=== PATIENT | female | born 1965 | race Caucasian/White ===

== ENCOUNTER 2019-04-28 11:49 | Outpatient (CLI) | payer MEDICARE, SELFPAY ==
--- NOTE | 2019-04-28 | XR_ITS ---
WS: [id number] KNEES AP STANDING TECHNIQUE: Bilateral AP weightbearing view. CLINICAL INFORMATION: RIGHT KNEE PAIN COMPARISON: None. FINDINGS: Moderate joint space narrowing both medial joint compartments. Lateral compartments are better preser hood. Normal visualized patella on AP view. XR/[place] [id number] IMPRESSION: Moderate bilateral joint space narrowing worse in the right knee.
== END 2019-04-28 11:50 | disposition home or self-care (01) ==
LOC: RADOUTREAD 11:54
PROVIDERS: Family Provider Internal Medicine; Visit Provider Internal Medicine
DX: Z76.89 Persons encountering health services in other specified circumstances (principal)

== ENCOUNTER 2020-05-24 08:38 | Outpatient (CLI) | payer MEDICARE, SELFPAY ==
--- NOTE | 2020-05-24 08:57 | MM_ITS ---
WS: [id number] BILATERAL SCREENING DIGITAL MAMMOGRAM WITH CAD HISTORY: SCREENING COMPARISON: 07/25/2018 and 07/19/2017 Bilateral CC and MLO views submitted. Computer aided detection analyzed. Breast composition: There are scattered areas of fibroglandular density. No suspicious masses, microc alcifications or architectural distortion. Benign calcification RIGHT breast. MM/[place] [id number] IMPRESSION: BI-RADS: 2-Benign FOLLOW UP: 1 Year Follow-up
== END 2020-05-24 08:39 | disposition home or self-care (01) ==
LOC: RADSHAW 08:40
PROVIDERS: PCP Internal Medicine; Visit Provider Internal Medicine
DX: Z12.31 Encounter for screening mammogram for malignant neoplasm of breast (principal)
CPT/HCPCS: 77067

== ENCOUNTER 2021-08-16 09:37 | Outpatient (CLI) | payer MEDICARE, SELFPAY ==
--- NOTE | 2021-08-16 09:48 | MM_ITS ---
WS: [id number] BILATERAL SCREENING DIGITAL BREAST TOMOSYNTHESIS MAMMOGRAM WITH CAD HISTORY: SCREENING COMPARISON: 05/24/2020, 07/25/2018 Bilateral CC and MLO views with tomosynthesis and synthetic mammography submitted. Computer aided det ection analyzed. Breast composition: There are scattered areas of fibroglandular density. No suspicious masses, microc alcifications or architectural distortion. Vascular calcifications retroareolar LEFT breast. MM/[place] [id number] IMPRESSION: BI-RADS: 2-Benign FOLLOW UP: 1 Year Follow-up
== END 2021-08-16 09:38 | disposition home or self-care (01) ==
PROVIDERS: PCP Internal Medicine; Visit Provider Internal Medicine
DX: Z12.31 Encounter for screening mammogram for malignant neoplasm of breast (principal)
CPT/HCPCS: 77063; 77067

== ENCOUNTER → 2021-10-05 11:41 | Outpatient (BNVA) | payer MEDICARE, SELFPAY | PROVIDERS: PCP Internal Medicine; Visit Provider Nurse Practitioner Family | DX: U07.1 COVID-19 (principal); J40 Bronchitis, not specified as acute or chronic; J44.9 Chronic obstructive pulmonary disease, unspecified; R09.02 Hypoxemia | CPT/HCPCS: 80053 ==

== ENCOUNTER → 2021-11-28 09:02 | Outpatient (BNVA) | payer MEDICARE, SELFPAY | PROVIDERS: PCP Internal Medicine; Referring Provider Internal Medicine; Visit Provider Student in an Organized Health Care Education/Training Program | DX: M17.11 Unilateral primary osteoarthritis, right knee (principal); M25.561 Pain in right knee | CPT/HCPCS: 20610; 73560; 73565; 99204; J3301 ==

== ENCOUNTER 2022-03-15 10:42 | Emergency (ER) | payer OTHER, SELFPAY ==
[2022-03-15] VITALS (9 sets, daily range): BP systolic 117–146; BP diastolic 81–93; PULSE 62–70; RESP 16–18; TEMP 36.9; O2SAT 86–97; BMI 33.3
--- NOTE | 2022-03-15 11:25 | XRR_ITS ---
PROCEDURE INFORMATION: Exam: XR Chest Exam date and time: 03/15/2022 12:03 PM Age: 56 years old Clinical indication: Cough and dyspnea; Additional info: Dyspnea/cough TECHNIQUE: Imaging protocol: Radiologic exam of the chest. Views: 1 view. COMPARISON: CR XR chest 1V [id number] 09/26/2017 9:17 AM FINDINGS: Lungs: There ill-defined ground-glass infiltrates within the mid to lower lung zones more pronounced on the right that have developed in presumed infectious in nature. Possibly of viral pneumonitis including COVID-19 cannot be excluded. Upper lung zones are clear. Pleural spaces: Unremarkable. No pleural effusion. No pneumothorax. Heart/Mediastinum: Cardiac silhouette is borderline enlarged. Bones/joints: Unremarkable for age. XR/XR chest 1V portable [id number] IMPRESSION: Interval development of bilateral ground-glass infiltrates as discussed above.
--- NOTE | 2022-03-15 11:26 | ECG_ITS ---
[facility] Test Date: 2022-03-15 Pat Name: Magda Jackson Department: Room: Gender: Female Information Resource Consultant: : 1965 Requested By: Ritesh Candelario Order Number: [id number] Joey MD: Tracey Lay M.D. Measurements Intervals [place] Rate: 64 P: 63 DE: 173 QRS: 77 QRSD: 96 T: 79 QT: 439 QTc: 454 Interpretive Statements SINUS RHYTHM NONSPECIFIC T-WAVE ABNORMALITY No previous ECG available for comparison Electronically Signed On 03-15-2022 18:12:50 SENIOR SALES MANAGER by Tracey Lay M.D. [id number]
[2022-03-15 11:41] LABS: Basophils % 0.1 %; Eosinophils % 0.1 %; Hematocrit 35.1 % (37.0-47.0); Hemoglobin 11.5 g/dL (11.5-15.3); Lymphocytes # 1.4 10^3/uL (0.8-4.8); Lymphocytes % 19.9 %; Mean Corpuscular HGB Conc 32.8 g/dL (30.0-36.0); Mean Corpuscular Hemoglobin 28.7 pg (28.0-34.0); Mean Corpuscular Volume 87.5 fl (81-99); Mean Platelet Volume 10.4 fL (7.4-10.4); Monocytes # 0.4 10^3/uL (0.2-0.9); Monocytes % 5.4 %; Neutrophils # 5.29 10^3/uL (1.8-7.7); Neutrophils % 73.1 %; Nucleated Red Blood Cells % 0 %; Platelet Count 162 10^3/cmm (130-400); Red Blood Count 4.01 10^6/uL (4.1-5.3); Red Cell Distribution Width 14.6 % (12.1-15.1); White Blood Count 7.2 10^3/uL (4.0-10.0)
--- NOTE | 2022-03-15 12:05 | ED_ITS ---
HPI - General Adult General: Chief complaint: General Medical Stated complaint: sob Time Seen by Provider: 03/15/22 11:24 Source: patient Mode of arrival: ambulatory History of Present Illness: 56-year-old female who presents to the emergency room with complaint of cough congestion shortness of breath for the last week. States she feels like she has the flu. She has been hypoxic she previously had COVID and was discharged home with oxygen on room air today she presented at 86%. With 3 L she is up to 97%. She denies any chest pain no vomiting but she has had some episodes of diarrhea. Patient is a smoker she is on Spiriva and albuterol. She used albuterol treatments morning with moderate relief of symptoms Onset (ago): week(s) (1) Severity: mild Relieving factors: other (Oxygen) Exacerbating factors: none Associated symptoms: Reports cough, decreased appetite, dyspnea, fevers/chills, headache(s), malaise, nausea, short of breath and weakness; Deny chest pain, confusion, diaphoresis, rash, palpitations, seizures, syncope or vomiting Treatments prior to arrival: other (Albuterol) Review of Systems Const: Reports: malaise; Denies: diaphoresis ENMT: Denies: throat pain, ear or mastoid pain, nasal discharge or nasal congestion Card: Denies: chest pain, palpitations or syncope Resp: Reports: dyspnea GI: Reports: nausea; Denies: vomiting : Denies: flank pain, difficulty voiding, dysuria, urinary frequency or u rinary urgency Skin/Breast: Denies: rash Neuro: Reports: headache(s); Denies: confusion PFSH ED PFSH: Medical History (Updated 03/15/22 @ 14:37 by Ritesh Stewart DO) COPD (chronic obstructive pulmonary disease) Right knee DJD Surgical History (Updated 03/15/22 @ 12:11 by Ritesh Stewart DO) History of lumpectomy of left breast History of nasal surgery History of right knee surgery Social History Smoking and tobacco status: current every day smoker (1 pack a day for over 20 years ) Physical Exam Const: GENERAL APPEARANCE: cooperative and comfortable ORIENTATION/CONSCIOUSNESS: Yes awake, Yes oriented to person, Yes oriented to place and Yes oriented to time HENMT: COMMON NORMALS: normocephalic, atraumatic and hearing grossly normal bilaterally HEAD & SCALP: normocephalic and atraumatic Resp: AUSCULTATION: rhonchi and wheezes Cardio: COMMON NORMALS: regular rate, regular rhythm and No murmurs present (Cardio) RATE: regular rate RHYTHM: regular rhythm GI: COMMON NORMALS: Soft to palpation and No hepatosplenomegaly present AUSCULTATION: Yes normoactive bowel sounds PALPATION: Yes Soft to palpation, No Tenderness to palpation present (GI), No Guarding due to palpation present (GI) and Yes No hepatosplenomegaly present Extremity: COMMON NORMALS: normal to inspection, capillary refill normal, no clubbing, cyanosis or edema, no calf tenderness and no pedal edema Neuro: SENSORIUM/ORIENTATION: Yes oriented to person, Yes oriented to place and Yes oriented to time Skin: COMMON NORMALS: no rashes or lesions noted GENERAL SKIN EXAM: no rashes or lesions noted Course Vital Signs: Vital signs: Vital Signs Temperature 98.4 F 03/15/22 10:52 Pulse Rate 64 03/15/22 14:19 Respiratory Rate 16 03/15/22 14:19 Blood Pressure 145/82 03/15/22 14:19 Pulse Oximetry 93 03/15/22 14:19 Oxygen Delivery Me thod 03/15/22 14:19 Oxygen Flow Rate 1 03/15/22 14:19 [facility] - General Adult Medical Decision Making Exacerbation of COPD with influenza. Patient has oxygen at home she will need to wear it at 2 to 3 L/min which is what she has previously prescribed out. She is outside the window of opportunity to start Tamiflu. Steroid taper and aggressive use of albuterol ipratropium nebulizers for pulmonary toilet recheck with primary care for improving Medical Records I reviewed the patient's medical records. Lab Data I reviewed the patient's lab results. 03/15/22 11:28 03/15/22 11:28 Radiology Impressions Chest X-Ray 03/15/22 11:25 IMPRESSION: Interval development of bilateral ground-glass infiltrates as discussed above. Laboratory Results WBC 7.2 10^3/uL (4.0-10.0) 03/15/22 11:28 RBC 4.01 10^6/uL (4.1-5.3) L 03/15/22 11:28 Hgb 11.5 g/dL (11.5-15.3) 03/15/22 11:28 Hct 35.1 % (37.0-47.0) L 03/15/22 11:28 MCV 87.5 fl (81-99) 03/15/22 11:28 MCH 28.7 pg (28.0-34.0) 03/15/22 11:28 MCHC 32.8 g/dL (30.0-36.0) 03/15/22 11:28 RDW 14.6 % (12.1-15.1) 03/15/22 11:28 Plt Count 162 10^3/cmm (130-400) 03/15/22 11:28 MPV 10.4 fL (7.4-10.4) 03/15/22 11:28 Neut % (Auto) 73.1 % 03/15/22 11:28 Lymph % (Auto) 19.9 % 03/15/22 11:28 [place] % (Auto) 5.4 % 03/15/22 11:28 Eos % (Auto) 0.1 % 03/15/22 11:28 Baso % (Auto) 0.1 % 03/15/22 11:28 Neut # (Auto) 5.29 10^3/uL (1.8-7.7) 03/15/22 11:28 Lymph # (Auto) 1.4 10^3/uL (0.8-4.8) 03/15/22 11:28 [place] # (Auto) 0.4 10^3/uL (0.2-0.9) 03/15/22 11:28 Eos # (Auto) 0.0 10^3/uL (0.0-0.8) 03/15/22 11:28 Baso # (Auto) 0.0 10^3/uL (0.0-0.1) 03/15/22 11:28 Nucleated RBC % (auto) 0 % 03/15/22 11:28 Nucleated RBCs # 0.0 /100WBC 03/15/22 11:28 Sodium 132 mmol/L (136-145) L 03/15/22 11:28 Potassium 5.4 mmol/L (3.5-5.1) H 03/15/22 11:28 Chloride 99 mmol/L (98-107) 03/15/22 11:28 Carbon Dioxide 24 mmol/L (22-29) 03/15/22 11:28 Anion Gap 14.4 (5-19) 03/15/22 11:28 BUN 7 mg/dL (6-20) 03/15/22 11:28 Creatinine 1.1 mg/dL (0.5-0.9) H 03/15/22 11:28 GFR Calculation 51.0 mL/min (90-130) L 03/15/22 11:28 Glucose 101 mg/dL (65-115) 03/15/22 11:28 Calculated Osmolality 272 mOsm/kg (285-295) L 03/15/22 11:28 Calcium 8.3 mg/dL (8.5-10.5) L 03/15/22 11:28 Total Bilirubin 0.3 mg/dL (0.15-1.2) 03/15/22 11:28 AST 27 U/L (0-32) 03/15/22 11:28 ALT 21 U/L (0-33) 03/15/22 11:28 Alkaline Phosphatase 58 U/L (35-105) 03/15/22 11:28 Total Protein 6.7 g/dL (6.6-8.7) 03/15/22 11:28 Albumin 4.0 g/dL (3.5-5.2) 03/15/22 11:28 Globulin 2.7 g/dL (1.3-4.6) 03/15/22 11:28 Nasal Influ A H1 2009 PCR Detected (NOT DETECT) A 03/15/22 14:14 Coronavirus 229E (PCR) Not detected (NOT DETECT) 03/15/22 12:16 Influenza A (H1) PCR Not detected (NOT DETECT) 03/15/22 14:14 Influenza A (H3) PCR Not detected (NOT DETECT) 03/15/22 14:14 Influenza Type A (PCR) Detected (NOT DETECT) A 03/15/22 14:14 Influenza Type B (PCR) Not detected (NOT DETECT) 03/15/22 14:14 SARS-CoV-2 (PCR) Not detected (NOT DETECT) 03/15/22 12:16 Discharge Plan Discharge Patient Disposition: Home Clinical Impression: Influenza A, Acute exacerbation of chronic obstructive pulmonary disease Condition: Stable Prescriptions: New prednisone 20 mg tablet 20 mg PO TID Qty: 15 0RF Rx Instructions: 1 p.o. 3 times daily x3 days, 1 p.o. twice daily x2 days, 1 p.o. daily x2 days ipratropium-albuterol 0.5 mg-3 mg(2.5 mg base)/3 mL solution for nebulization 3 ml inhalation Q4H PRN (Reason: shortness of breath or wheezing) Qty: 180 0RF Rx Instructions: until breathing returns to target peak flow/parameters No Action mometasone [Nasonex] 50 mcg/actuation spray,non-aerosol 2 spray intranasal DAILY Rx Instructions: administer into each nostril cyclobenzaprine 10 mg tablet 10 mg PO TID PRN (Reason: Muscle Pain) trazodone 100 mg tablet 100 mg PO BEDTIME naproxen 375 mg tablet 375 mg PO BID PRN (Reason: Pain) Dexilant 60 mg capsule,biphase delayed releas 60 mg PO DAILY montelukast 10 mg tablet 10 mg PO DAILY loratadine [Claritin] 10 mg tablet 10 mg PO DAILY citalopram [Celexa] 40 mg tablet 40 mg PO DAILY hydrocodone-acetaminophen 10-325 mg tablet 1 tab PO Q8H PRN (Reason: Pain) atorvastatin [Lipitor] 20 mg tablet 20 mg PO DAILY magnesium 200 mg tablet 400 mg PO BID albuterol sulfate [ProAir HFA] 90 mcg/actuation HFA aerosol inhaler 2 puff inhalation QID PRN (Reason: shortness of breath or wheezing) Qty: 8.5 6RF Trelegy Ellipta 200-62.5-25 mcg blister with device 1 inh inhalation Q24H Qty: 60 6RF (DME) compressor, for nebulizer Device See Rx Instructions .Route Qty: 1 0RF Rx Instructions: 1 NEBULIZER AND ALL REQUIRED EGUIPMENT As directed albuterol sulfate 2.5 mg /3 mL (0.083 %) solution for nebulization 2.5 mg inhalation Q4H PRN (Reason: shortness of breath or wheezing) Qty: 180 6RF promethazine-DM 6.25-15 mg/5 mL syrup 5 - 10 ml PO Q6H PRN (Reason: cough) Qty: 200 1RF (DME) nebulizer machine and supplies See Rx Instructions .Route .MEDSUPPLY Qty: 1 0RF Rx Instructions: with albuterol every 4 hours prn dyspnea and wheezing (DME) Oxygen @ 2 L per n/c prn See Rx Instructions .Route .MEDSUPPLY Qty: 1 0RF Rx Instructions: needs conservative device with portable and concentrator (DME) INSPECTOR SET UP AND LAY OUT BRACE See Rx Instructions .Route .MEDSUPPLY Qty: 1 0RF Rx Instructions: As directed alprazolam 0.5 mg tablet 0.5 mg PO TID PRN (Reason: Anxiety) bupropion HCl 150 mg tablet extended release 24 hr 150 mg PO DAILY pregabalin 150 mg capsule 150 mg PO TID Discharge Orders: Discharge ED (Routine); Ordered 03/15/22 Ordered By: Ritesh Stewart Referrals: Conor Centeno DO [Primary Care Provider] - Discharge Diet: Usual diet Discharge Activity: Increase activity as tolerated Patient Instructions: Opioid Safety, Pain Management Activity Restrictions/Additional Instructions: You were seen today for cough and shortness of breath. He tested positive for influenza. Your course of influenza is further complicated by your COPD. He should wear your oxygen at 2-3 L/min continuously. Start the prednisone taper tomorrow. Additionally use the nebulizers every 4 hours while awake as needed. Coding Level of Care Code ED Business Analysis Professional for Melina Fwd Exam Detailed
[2022-03-15 12:09] LABS: Alanine Aminotransferase 21 U/L (0-33); Alkaline Phosphatase 58 U/L (35-105); Anion Gap 14.4 (5-19); Aspartate Amino Transferase 27 U/L (0-32); Blood Urea Nitrogen 7 mg/dL (6-20); Calcium 8.3 mg/dL (8.5-10.5); Carbon Dioxide 24 mmol/L (22-29); Chloride 99 mmol/L (98-107); Globulin 2.7 g/dL (1.3-4.6); Glucose 101 mg/dL (65-115); Osmolality Calculated 272 mOsm/kg (285-295); Potassium 5.4 mmol/L (3.5-5.1); Sodium 132 mmol/L (136-145); Total Bilirubin 0.3 mg/dL (0.15-1.2); Total Protein 6.7 g/dL (6.6-8.7)
[2022-03-15] MEDS: ipratropium-albuterol 3 mL Neb INHALATION (12:33)
[2022-03-15 14:11] LABS: Adenovirus Not Detected (NOT DETECT); Chlamydia Pneumoniae Not Detected (NOT DETECT); Coronavirus 229E,HKU1,NL63,OC4 Not Detected (NOT DETECT); Human Metapneumovirus Not Detected (NOT DETECT); Human Rhinovirus/Enterovirus Not Detected (NOT DETECT); Influenza A Detected (NOT DETECT); Influenza A H1 Not Detected (NOT DETECT); Influenza A H1-2009 Detected (NOT DETECT); Influenza A H3 Not Detected (NOT DETECT); Influenza B Not Detected (NOT DETECT); Mycoplasma Pneumoniae Not Detected (NOT DETECT); Parainfluenza Virus Type 1 Not Detected (NOT DETECT); Parainfluenza Virus Type 2 Not Detected (NOT DETECT); Parainfluenza Virus Type 3 Not Detected (NOT DETECT); Parainfluenza Virus Type 4 Not Detected (NOT DETECT); Respiratory Syncytial Virus A Not Detected (NOT DETECT); Respiratory Syncytial Virus B Not Detected (NOT DETECT); SARS-COV-2 Not Detected (NOT DETECT)
[2022-03-15 14:14] LABS: Influenza A Detected (NOT DETECT); Influenza A H1 Not Detected (NOT DETECT); Influenza A H1-2009 Detected (NOT DETECT); Influenza A H3 Not Detected (NOT DETECT); Influenza B Not Detected (NOT DETECT); Results from GEN
--- NOTE | 2022-03-15 16:24 | PC.NURSE ---
Pt and spouse stopped RN AP numerous times requesting to be discharged. Pt verbalized the need to go, seconded by spouse, to take my meds , and pt supported spouses verbalized discontentment with having to wait. Pt requested to be discharged. Pt and spouse verbalized negative feelings about the timely process to discharge and can't wait around for oxygen to arrive. Pt was aware of wait for oxygen. Requested to be discharged and verbalized we have to drive to [place] . Pt and spouse were worried about time to get meds.
== END 2022-03-15 15:46 | disposition home or self-care (01) ==
PROVIDERS: Emergency Provider Family Medicine; PCP Internal Medicine
DX: J44.1 Chronic obstructive pulmonary disease with (acute) exacerbation (principal); J10.1 Influenza due to other identified influenza virus with other respiratory manifestations; Z20.822 Contact with and (suspected) exposure to COVID-19; F17.210 Nicotine dependence, cigarettes, uncomplicated
CPT/HCPCS: 36415; 71045; 80053; 85025; 87040; 87631; 87635; 93005; 94640; 96374; 99285; J2930

== ENCOUNTER 2022-04-13 14:49 | Outpatient (CLI) | payer OTHER, SELFPAY | END 2022-04-13 14:50 | disposition home or self-care (01) | LOC: SPT 14:49 | PROVIDERS: PCP Internal Medicine; Visit Provider Student in an Organized Health Care Education/Training Program | DX: Z46.89 Encounter for fitting and adjustment of other specified devices (principal); M17.11 Unilateral primary osteoarthritis, right knee | CPT/HCPCS: 97760; L1851 ==

== ENCOUNTER 2022-08-30 11:02 | Outpatient (CLI) | payer MEDICARE, SELFPAY ==
--- NOTE | 2022-08-30 11:12 | MM_ITS ---
WS: [id number] BILATERAL SCREENING DIGITAL TOMOSYNTHESIS MAMMOGRAM WITH CAD HISTORY: SCREENING COMPARISON: 08/16/2021, 05/24/2020 Bilateral CC and MLO views with tomosynthesis and synthetic mammography submitted. Computer aided det ection analyzed. Breast composition: There are scattered areas of fibroglandular density. No suspicious masses, microc alcifications or architectural distortion. MM/[place] [id number] IMPRESSION: BI-RADS: 1-Negative FOLLOW UP: 1 Year Follow-up
== END 2022-08-30 11:03 | disposition home or self-care (01) ==
PROVIDERS: PCP Internal Medicine; Visit Provider Internal Medicine
DX: Z12.31 Encounter for screening mammogram for malignant neoplasm of breast (principal)
CPT/HCPCS: 77063; 77067

== ENCOUNTER → 2023-01-02 09:29 | Outpatient (BNVA) | payer MEDICARE, SELFPAY | PROVIDERS: PCP Internal Medicine; Visit Provider Physician Assistant | DX: M17.11 Unilateral primary osteoarthritis, right knee (principal) | CPT/HCPCS: 20610; 99213; J3301 ==

== ENCOUNTER → 2023-05-15 11:06 | Outpatient (BNVA) | payer MEDICARE, SELFPAY | PROVIDERS: PCP Internal Medicine; Visit Provider Student in an Organized Health Care Education/Training Program | DX: M17.11 Unilateral primary osteoarthritis, right knee (principal) | CPT/HCPCS: 99213 ==

== ENCOUNTER → 2023-06-19 08:07 | Outpatient (BNVA) | payer MEDICARE, SELFPAY | PROVIDERS: PCP Internal Medicine; Visit Provider Physician Assistant | DX: M17.11 Unilateral primary osteoarthritis, right knee (principal) | CPT/HCPCS: 20610; 99213; J7318 ==

== ENCOUNTER 2023-11-06 09:30 | Outpatient (CLI) | payer MEDICARE, SELFPAY ==
--- NOTE | 2023-11-06 09:58 | MM_ITS ---
WS: [id number] BILATERAL 3D TOMOSYNTHESIS DIGITAL SCREENING MAMMOGRAPHY WITH CAD CLINICAL INFORMATION: SCREENING HISTORY: Screening mammogram. No current complaints. COMPARISON: 2022 TECHNIQUE: Bilateral CC and MLO views. FINDINGS: The breasts are composed of heterogeneous fibroglandular density tissue, which can limit the detectio n of small underlying mass lesions. No suspicious mass, asymmetry, calcifications, or architectural d istortion. No evidence of malignancy. Few incidental punctate calcifications. MM/[place] [id number] IMPRESSION: BI-RADS: 2-Benign FOLLOW UP: 1 Year Follow-up Recommend return to annual screening mammography.
== END 2023-11-06 09:55 | disposition home or self-care (01) ==
PROVIDERS: PCP Internal Medicine; Visit Provider Internal Medicine
DX: Z12.31 Encounter for screening mammogram for malignant neoplasm of breast (principal); R92.333 Mammographic heterogeneous density, bilateral breasts; R92.1 Mammographic calcification found on diagnostic imaging of breast
CPT/HCPCS: 77063; 77067

== ENCOUNTER → 2023-12-25 08:15 | Outpatient (BNVA) | payer MEDICARE, SELFPAY | PROVIDERS: PCP Internal Medicine; Visit Provider Physician Assistant | DX: M17.11 Unilateral primary osteoarthritis, right knee (principal) | CPT/HCPCS: 20610; 99213; J7318 ==

== ENCOUNTER → 2024-03-20 10:01 | Outpatient (BNVA) | payer MEDICARE, SELFPAY | PROVIDERS: PCP Internal Medicine; Referring Provider Internal Medicine; Visit Provider Specialist | DX: R20.0 Anesthesia of skin (principal); R20.2 Paresthesia of skin | CPT/HCPCS: 95911 ==

== ENCOUNTER → 2024-04-29 11:13 | Outpatient (BNVA) | payer MEDICARE, SELFPAY | PROVIDERS: PCP Internal Medicine; Visit Provider Nurse Practitioner Family | DX: J40 Bronchitis, not specified as acute or chronic (principal) | CPT/HCPCS: 71046 ==

== ENCOUNTER → 2024-05-01 12:05 | Outpatient (BNVA) | payer MEDICARE, SELFPAY | PROVIDERS: PCP Internal Medicine; Visit Provider Nurse Practitioner Family | DX: J98.11 Atelectasis (principal) | CPT/HCPCS: 71046 ==

== ENCOUNTER → 2024-06-25 08:52 | Outpatient (BNVA) | payer MEDICARE, SELFPAY | PROVIDERS: PCP Family Medicine; Visit Provider Physician Assistant | DX: M17.11 Unilateral primary osteoarthritis, right knee (principal) | CPT/HCPCS: 20610; 99213; J7318 ==

== ENCOUNTER → 2024-09-10 10:11 | Outpatient (BNVA) | payer MEDICARE, SELFPAY | PROVIDERS: PCP Family Medicine; Visit Provider Physician Assistant | DX: M17.11 Unilateral primary osteoarthritis, right knee (principal); Z87.891 Personal history of nicotine dependence | CPT/HCPCS: 73560; 73565; 99214 ==

== ENCOUNTER 2024-09-23 10:40 | Outpatient (CLI) | payer OTHER, SELFPAY ==
--- NOTE | 2024-09-23 10:30 | CT_ITS ---
WS: [id number] CT RIGHT knee, noncontrast HISTORY: RIGHT TOTAL KNEE ARTHROPLASTY TECHNIQUE: Protocol for [facility] total knee replacement has been obtained. This includes axial imaging through the RIGHT hip, RIGHT knee and RIGHT ankle. DLP: 971.79 mGy.cm COMPARISON: Radiograph 09/10/2024 Hips: Degenerative air in the SI joints and mild sacroiliitis. No bone destruction. No significant degenerative changes at the hip joints. Enthesopathy at the RIGHT greater trochanter. No muscle atrophy. RIGHT knee: Mild to moderate medial compartment joint space narrowing with subchondral cystic changes and hypertrophic bone. Mild narrowing of the lateral compartment and patellofemoral compartments. Very slight lateral subluxation of the patella. Small suprapatellar joint effusion. Moderate-sized Miller's cyst. RIGHT ankle: Negative. CT/CT knee RT [facility] [id number] IMPRESSION: CT imaging provided for [facility] robotic total knee replacement.
== END 2024-09-23 10:41 | disposition home or self-care (01) ==
LOC: RAD 10:50
PROVIDERS: PCP Family Medicine; Visit Provider Physician Assistant
DX: M17.11 Unilateral primary osteoarthritis, right knee (principal)
CPT/HCPCS: 73700; 80053; 81003; 85025

== ENCOUNTER 2024-09-29 12:23 | Observation (INO) | payer MEDICARE, SELFPAY ==
[2024-09-29] VITALS (20 sets, daily range): BP systolic 111–157; BP diastolic 59–88; PULSE 60–96; RESP 13–22; TEMP 36.4–36.9; O2SAT 92–100; BMI 32.5
--- NOTE | 2024-09-29 07:20 | P.HPUD_ITS ---
Surgery/Procedure H&P Update DATE OF PROCEDURE: September 29, 2024 DATE H&P PERFORMED: 09/10/24 H&P UPDATE INFORMATION: I have reviewed H&P completed within last 30 days, I have examined patient prior to procedure and No changes to prior documentation CHANGES TO PREVIOUS DOCUMENTATION: Patient is cleared the preoperative clearance process, she is over 90 days out from her last injection and ready to proceed with a right total knee arthroplas ty?Gallito robotic assisted. Patient understands enzymes procedure the risk benefits complication alternatives with surgery and through shared decision- making patient elects proceed with surgical intervention. All questions been answered at this time. PREOP DIAGNOSIS: Right knee DJD PRIMARY INDICATION FOR PROCEDURE: Right knee DJD PLANNED PROCEDURE: Operation Date: 09/29/24 09:35 Proposed Procedures p RIGHT Gallito Robot Total Knee Arthroplasty(Right) - Javier Rivera DO
[2024-09-29] MEDS: acetaminophen 1,000 MG/100 ML PIGGYBACK 400 MG IV ×3 (07:50→23:54)
[2024-09-29 08:15] LABS: Hematocrit 36.3 % (36-47); Hemoglobin 11.70 g/dL (11.27-16.99); Mean Corpuscular HGB Conc 32.2 g/dL (30-55); Mean Corpuscular Hemoglobin 25.8 pg (27-33); Mean Corpuscular Volume 80.0 fl (85-98); Nucleated Red Blood Cells % 0 %; Platelet Count 209 10^3/cmm (157-399); Red Blood Count 4.54 10^6/uL (3.85-5.65); White Blood Count 6.45 10^3/uL (3.29-11.43)
[2024-09-29 08:30] LABS: Blood Urea Nitrogen 20 mg/dL (8-23); Calcium 9.2 mg/dL (8.5-10.5); Carbon Dioxide 23 mmol/L (22-29); Chloride 105 mmol/L (98-107); Glucose 91 mg/dL (65-115); Osmolality Calculated 296 mOsm/kg (285-295); Sodium 142 mmol/L (136-145)
[2024-09-29 08:32] LABS: Anion Gap 18.4 (5-19); Creatinine Clr Calc Pharmacy 57.7770; Potassium 4.4 mmol/L (3.5-5.1)
--- NOTE | 2024-09-29 09:39 | ANES.PREANE2 ---
Pre-Anesthetic Assessment Height/Weight: Height 1.63 m Weight 86.183 kg Temp Pulse Resp BP Pulse Ox O2 Del Method 97.6 F 74 18 114/82 95 Room Air 09/29/24 07:20 09/29/24 07:20 09/29/24 07:20 09/29/24 07:20 09/29/24 07:20 09/29/24 07:31 Preop Diagnosis: Right knee DJD Operation Date: 09/29/24 09:35 Proposed Procedures p RIGHT Gallito Robot Total Knee Arthroplasty(Right) - Javier Rivera DO Familial anesthetic complications: none Was Beta Sarah taken within 24 hours: N/A Was Clonidine taken within 24 hours: N/A Last intake: Intake Last Liquid Date 09/28/24 Last Liquid Time 22:00 Last Solid Date 09/28/24 Last Solid Time 21:00 Social Tobacco and No alcohol 15 pack years Quit smoking may 2024. Exam alert, oriented x 3, clear to auscultation bilaterally and regular rate & rhythm Airway Cervical ROM: within normal limits Mallampati: Class III Dentition: chipped Comments: Comments: missing front left incisor Pulmonary Chronic Obstructive Pulmonary Disease Hospitalized in May. with right pleural effusion, 500ml drained, pt. states breathing well since CV/HEM None reported >4mets Chronic Renal Insufficiency Hepatic None reported Metabolic Hyperlipidemia Musc/skel Osteoarthritis/DJD Neuropsych None reported Anesthetic Plan ASA status: 3 Anesthesia: Eval. for regional block, MAC and Regional (specify below) Other: SAB, ACB Risk of > 500 ml blood loss (7ml/kg in children): No Medications/Allergies Home Medications ?Medication ?Instructions ?Recorded ?Confirmed ?Last Taken ?Type atorvastatin 20 mg tablet (Lipitor) 20 mg PO DAILY 01/03/21 09/29/24 09/24/24 History cyclobenzaprine 10 mg tablet 10 mg PO TID PRN Muscle Pain 01/03/21 09/25/24 Unknown History hydrocodone 10 mg-acetaminophen 1 tab PO Q8H PRN Pain 01/03/21 09/29/24 09/29/24 History 325 mg tablet loratadine 10 mg tablet (Claritin) 10 mg PO DAILY 01/03/21 09/29/24 09/28/24 History magnesium 200 mg tablet 400 mg PO DAILY 01/03/21 09/29/24 09/28/24 History montelukast 10 mg tablet 10 mg PO DAILY 01/03/21 09/29/24 09/28/24 History naproxen 375 mg tablet 375 mg PO BID PRN Pain 01/03/21 09/25/24 Unknown History trazodone 100 mg tablet 100 mg PO BEDTIME 01/03/21 09/29/24 09/24/24 History albuterol sulfate 2.5 mg/3 mL 2.5 mg (3 mL) inhalation Q4H PRN 10/05/21 09/29/24 Unknown Rx (0.083 %) solution for nebulization shortness of breath or wheezing #180 mL compressor, for nebulizer #1 ea 10/05/21 09/23/24 Unknown Rx nebulizer machine and supplies #1 ea 10/05/21 09/23/24 Unknown Rx CHARGE ATTENDANT BRACE #1 ea 01/09/22 09/23/24 Unknown Rx alprazolam 0.5 mg tablet 0.5 mg PO TID PRN Anxiety 03/15/22 09/29/24 Unknown History bupropion HCl 150 mg 24 hr tablet, 150 mg PO DAILY 03/15/22 09/29/24 09/25/24 History extended release pregabalin 150 mg capsule See Rx Instructions .Route .COMPLEX 03/15/22 09/29/24 09/29/24 History albuterol sulfate 90 mcg/actuation 2 puff inhalation QID PRN 05/25/22 09/29/24 Unknown Rx aerosol inhaler (ProAir HFA) shortness of breath or wheezing #8.5 grams fluticasone fur. 200 mcg-umeclid 1 inh inhalation Q24H #60 ea 05/25/22 09/29/24 09/29/24 Rx 62.5 mcg-vilant 25 mcg inhalat.powder (Trelegy Ellipta) ibuprofen 200 mg capsule 200 mg PO Q6H PRN Pain 06/19/23 09/29/24 Unknown History biotin 10,000 mcg chewable tablet 10,000 mcg PO DAILY 09/23/24 09/29/24 09/25/24 History (Hair, Skin and Nails (biotin)) calcium carbonate (Calcium 600) 600 mg PO DAILY 09/23/24 09/25/24 09/25/24 History omeprazole magnesium 20 mg 20 mg PO DAILY 09/23/24 09/29/24 09/28/24 History tablet,delayed release (Prilosec OTC) Allergies Allergy/AdvReac Type Severity Reaction Status Date / Time azithromycin Allergy Severe ADR-Vomitin Verified 09/29/24 07:26 g PFSH Anesthesia Medical History Right knee DJD COPD (chronic obstructive pulmonary disease) Surgical History History of lumpectomy of left breast History of nasal surgery History of right knee surgery Social History Smoking and tobacco/nicotine status: former use of tobacco/nicotine Data Anesthesia 09/29/24 07:51 09/29/24 07:40 Short CBC 09/29/24 Range/Units 07:51 WBC 6.45 (3.29-11.43) 10^3/uL Hgb 11.70 (11.27-16.99) g/dL Hct 36.3 (36-47) % MCV 80.0 L (85-98) fl Plt Count 209 (157-399) 10^3/cmm Neut % (Auto) 53.0 % Neut # (Auto) 3.42 (1.8-7.7) 10^3/uL BMP 09/29/24 07:40 Sodium 142 Potassium 4.4 Chloride 105 Carbon Dioxide 23 BUN 20 Creatinine 1.1 H Glucose 91 Calcium 9.2 Blood Bank 09/29/24 07:40 Blood Type A Positive Rho(D) Type Rh positive Antibody Screen Negative
[2024-09-29] MEDS: ceFAZolin 2,000 mg SDV 2000 MG IVP (10:17)
[2024-09-29] MEDS: tranexamic acid 1,000 mg/10mL SDV 1000 MG IV (10:20)
--- NOTE | 2024-09-29 10:23 | ANES.PROC ---
Anesthesia Procedures Procedure/Date: 09/29/24 Nerve Block ^: Nerve Block 1: Main Anesthesia: other Time Out Performed: Yes Consent: requested by attending/covering physician and from patient Nerve block location: adductor canal Anesthesia monitors applied: pulse oximetry, EKG, BP cuff and oxygen Nerve block position: supine Anesthetic Used: ropivicaine 0.5% Amount of anesthesia used (mL): 15 Ultrasound used to: recognize landmarks Nerve Stimulator Used?: Yes Interscalene/Femoral BLK: other needle (pjunk 4inch) Injection: neg aspiration of heme Patient Tolerated Procedure: well Complications: none
[2024-09-29] MEDS: ROPivacaine 0.2% Premix 100 mL 200 MG INTRA-ARTI (11:05)
[2024-09-29] MEDS: tranexamic acid 1,000 mg/10mL SDV 1000 MG XX (11:05)
--- NOTE | 2024-09-29 11:53 | W.PM.BPON ---
Date of Procedure: 09/29/2024 Surgeon: Javier Rivera DO Adobe Block Maker(s): Endy Rivera PA-C Procedure(s) performed: Right total knee arthroplasty?Gallito robotic assisted Findings of the procedure(s): Underwent procedure as planned without issues or complications. Estimated blood loss: 25 mL Specimen(s) removed: Tibia femur and patellar bone cuts removed Post-operative diagnosis: Right knee DJD
--- NOTE | 2024-09-29 11:56 | PM.OP ---
Operative Report Date of procedure: September 29, 2024 Surgeon: Javier Rivera DO Procedure: Preoperative diagnosis: Right knee degenerative joint disease Post-op diagnosis: Same Procedure done: Right total knee arthroplasty, cemented?robotic assisted Gallito Implants: Braithwaite triathlon size 3 femur CR cemented?Right Braithwaite triathlon size? 3 tibia universal baseplate cemented Braithwaite triathlon symmetric patella size 31 mm Dana triathlon polyethylene 11mm Surgeon: Javier Rivera DO Estimated blood?loss: 25 mL Tourniquet 54minutes IV fluids: 700 mL Urine output: 100 mL Complications: None Condition: stable Disposition: floor Brief History: Patient is a 58-year-old female with with chronic?Right knee degenerative joint disease.? Patient has been worked up in the outpatient setting in the orthopedic office at this point time through shared decision making given? [id number] arthritis as well as failed conservative treatment, and pt would?like to proceed with a?Right total knee arthroplasty.? Through shared decision making elected to proceed with surgical intervention for?Right total knee arthroplasty?Gallito robotic assisted.? We talked about continued conservative treatment and surgical intervention as far as the risk benefits complications alternatives surgical and nonsurgical treatment options.? At this point time understanding patient risks with surgery patient agrees to proceed with surgical intervention.? Once again? risk with surgery include but are not?limited to make it better make it worse blood clot, heart attack, stroke, on the table, infection, injury to nerves or vessels, persistent pain, arthrofibrosis, implant failure.? Understanding these risks patient agrees to proceed with surgical intervention consent was obtained in the preoperative holding area.? All questions answered. Procedure: Patient was seen and evaluated in the preoperative holding area.? Consent was reviewed and signed with patient with plan for?Right total knee arthroplasty.? All questions answered.? Correct extremity marked.? Patient seen and evaluated by the anesthesia department and once cleared for surgery was taken back to the operative suite.? Patient was placed into a supine position on the OR table.? All bony prominences were well-padded.? Patient was appropriately secured to the bed.? Patient underwent anesthesia per the anesthesia department.? Patient received spinal anesthesia and? Turner catheter was placed.? A nonsterile tourniquet was applied to the?Right thigh.? At this point in time a final timeout performed.? Patient received appropriate preoperative antibiotics and TXA. Next the?Right?lower extremity was then prepped and draped in standard orthopedic fashion. Esmarch tourniquet was used exsanguinate the?Right?lower extremity.? Tourniquet was insufflated to 250 mmHg. A standard anterior incision was made over midline of the knee.? Sharp scalpel excision through skin and subcutaneous tissue full-thickness skin flaps were made.? Fascia was elevated off of the extensor retinaculum was stable with medial parapatellar arthrotomy was then made.? The performed standard sequential releases..? Immediately on entry into the joint patient was found to have severe eburnated bone and tricompartmental arthritic changes noted With significant osteophyte formation.? Next the the patella was then stuffed and the knee was then flexed.?? Carlitos was placed superiorly around the anterior aspect of the femur this was freed of synovium and I subsequently then placed by 2 femur pins to establish my femur arrays for the Gallito robot.? These were then placed bicortically and? femur array was then appropriately secured with appropriate visualization.? Next attention was turned towards the tibial rays.? These were then drilled sequentially bicortically in parallel fashion and intraincisional.? I then placed my guide as well as my tibial array on in place.? This was appropriately secured and had excellent visualization with the Gallito robot.? Next the tibial checkpoint as well as femur checkpoint were then placed.? At this point time I then subsequently established my head center as well as my medial?lateral malleoli as well as my checkpoints.? Next utilizing standard Gallito technology I then mapped out the appropriate points and confirmation points around the femur as well as the tibia in standard fashion.? Once this was then done I then removed all osteophytes in preparation for dynamic testing.? All osteophytes were removed as well as I removed the ACL and the PCL was excised due to its significant tearing and degeneration noted.? At this point time the knee was brought into full extension and we performed our standard evaluation of our gap balancing stressing his?ligaments and extension as well as flexion appropriate adjustments were made to have appropriate gap balancing in both flexion and extension.? This plan for final cuts. Patient had a 0.5 varus deformity correctable on examination, we were able to perform standard corrections of deformity of the ligamentous balance tolerances. We get a preoperative plan evaluating our implants which was a size 3 femur and a size 3 tibia.? Next we brought in the Gallito robot and sequentially made our femur cuts.? All excess bony cuts were then removed.? Finally we made our tibial cut.? Once this was done a standard PCL retractor was then placed into this position I excised the medial and?lateral meniscus.? The tibial cut was then subsequently removed all excess bony debris was removed.? I then utilized a?lamina industrial electrical engineer and remove the posterior osteophytes.? At this point time sized the tibia and confirmed this was a size 3.? I utilized our blunt probe to establish rotation of tibial implant.? Once this was done I then placed my tibia size 3 trial in appropriate position and then subsequently placed tibial pins to hold this into place placed trialed up to a size 11 mm poly as well as a size 4 femur which was appropriately impacted in place knee was then subsequently brought into extension. Trials were then assessed,? this was stable with varus valgus stress in extension as well as had symmetrical translation when brought into flexion demonstrating symmetrical gaps. I had excellent balance gaps in flexion and extension with varus and valgus stresses.? At this point I was satisfied with these implants these were then verified and opened on the back table size 3 tibia, size 3 femur,? size 11 mm polythickness.? We did confirm appropriate gap balancing and stresses as well as alignment utilizing? Gallito and were satisfied with this plan.? ?At this point time with my trials in place I then towel clip the patella everted this made appropriate measurements subsequently utilizing freehand technique performed by patellar resurfacing this was confirmed to be appropriate resection and subsequently sized to be a 31 mm symmetric.? My drill peg guides were then clamped and appropriate position and appropriate position in the patella for appropriate tracking and parallel with the joint.? Pegs were drilled trial implant was placed and the knee was then subsequently ranged and found to have excellent patellar tracking.? Femur pegs were then drilled.? At this point time all of our trial implants were removed.? All checkpoints as well as guidepins and arrays were removed and appropriate counts made.? Satisfied with our tibial placement rotation I then utilized the keel punch and prepped the tibia.? The wound bed? was thoroughly irrigated and dried and prepped for cementation.? Cement was mixed on the back table.? Once cement was ready this was then covered onto the tibia and the tibial baseplate was then impacted and all excess cement was removed.? Next the polyethylene was then impacted into place on the tibial baseplate.? Next cement was placed onto the femur as well as under the femur implants and impacted in to place and all excess cement was extruded and removed.? Knee was taken into full extension? to clear all excess cement was removed.? Warm saline was placed over the joint.? I then towel clip patella and dried for cementation. cemented the patella into place.? This was all clamped and the cement was allowed to cure.? Thorough irrigation performed with pulse?lavage.? I then placed my periarticular injection while the cement was curing.? Once cured the knee was taken through range of motion and had excellent stability and gaps were balanced in flexion and extension.? Tourniquet was then deflated. hemostasis satisfactory with electrocautery.? Vancomycin powder was placed in wound bed for antibiotic infection prophylaxis. Next I then subsequently closed the capsule with Ethibond suture as well as a running strata fix suture.? Knee was then taken through range of motion 30 times.? Next the skin was then closed in?layered fashion of running stratifix sutures of deep and subcutenous tissue and skin.? ?closed in flexion and Prineo glue was then placed over the incision this allowed to cure.? Incision was covered with Silverlon, with ABDs soft roll and Gaurav wrap.? Patient was then awakened from anesthesia and taken to PACU in stable condition. Disposition: Patient taken to PACU in stable condition will be admitted to the floor for pain control PT/OT weight-bear as tolerated?Right?lower extremity dressing changes as needed, DVT prophylaxis. Pain control. Patient will receive appropriate postoperative antibiotics. patient will be seen today by the internal medicine team for medical management.? Patient will follow up with the office in 2 weeks.? Patient understands agrees with current plan.? All questions answered.
--- NOTE | 2024-09-29 12:16 | PM.PACU ---
PACU note Narrative: Patient is a 58-year-old female that underwent right total knee arthroplasty. Pt transferred to PACU in stable condition. Dressing is dry. pt is awake and alert. pt can wiggle toes and plantarflex and dorsiflex foot. pt able to perform straight leg raise, Femoral nerve intact. Distal pulses are palpable toes are warm and well-perfused. Cap refill is normal and under 2 seconds. Sensation to foot is intact. Pain is controlled. Exam: awake Disposition: admitted
--- NOTE | 2024-09-29 12:22 | XR_ITS ---
WS: [id number] XR knee RT 1-2V [id number] REASON FOR EXAM: POST OP FINDINGS: Total right knee arthroplasty. Components of the arthroplasty are intact and in proper position and alignment. No focal bony abnormality. XR/XR knee RT 1-2V [id number] IMPRESSION: Total right knee arthroplasty without abnormality.
--- NOTE | 2024-09-29 12:40 | ANE.PACU2 ---
Inpatient post-anesthesia follow up: Airway intact: Yes Vital signs: Temperature 98.0 F Pulse Rate 67 Respiratory Rate 18 Blood Pressure 148/73 Pulse Oximetry 94 Oxygen Delivery Me thod Room Air Oxygen Flow Rate 6 Fraction of Inspir ed Oxygen Hydration adequate: Yes Nausea and vomiting: No Pain level: 1 Mental status: Baseline
--- NOTE | 2024-09-29 14:55 | PM.CONSULT ---
Providers/Reason For Consult Consulting Physician/Specialty*: Orthopedic Reason for Consult*: Medical management Attending Physician: Javier Rivera DO Primary Care Provider: Archie Mancera MD History of Present Illness History of Present Illness Magda Jackson is a 58 year old female with right degenerative joint disease status post right knee surgery, hospitalist team was called salted for medical management currently she is alert to person, to place, not to time she follows commands, she is in postop recovery, she reports a history of COPD, reports a history of smoking, denies any shortness of breath, no chest pain, no nausea, no vomiting, no chest pain, denies a history of CAD, no history of strokes, no history of diabetes Review of Systems Card: Denies: chest pain Resp: Denies: dyspnea Medications/Allergies Home Medications ?Medication ?Instructions ?Recorded ?Confirmed ?Last Taken ?Type atorvastatin 20 mg tablet (Lipitor) 20 mg PO DAILY 01/03/21 09/29/24 09/24/24 History cyclobenzaprine 10 mg tablet 10 mg PO TID PRN Muscle Pain 01/03/21 09/25/24 Unknown History hydrocodone 10 mg-acetaminophen 1 tab PO Q8H PRN Pain 01/03/21 09/29/24 09/29/24 History 325 mg tablet loratadine 10 mg tablet (Claritin) 10 mg PO DAILY 01/03/21 09/29/24 09/28/24 History magnesium 200 mg tablet 400 mg PO DAILY 01/03/21 09/29/24 09/28/24 History montelukast 10 mg tablet 10 mg PO DAILY 01/03/21 09/29/24 09/28/24 History naproxen 375 mg tablet 375 mg PO BID PRN Pain 01/03/21 09/25/24 Unknown History trazodone 100 mg tablet 100 mg PO BEDTIME 01/03/21 09/29/24 09/24/24 History albuterol sulfate 2.5 mg/3 mL 2.5 mg (3 mL) inhalation Q4H PRN 10/05/21 09/29/24 Unknown Rx (0.083 %) solution for nebulization shortness of breath or wheezing #180 mL compressor, for nebulizer #1 ea 10/05/21 09/23/24 Unknown Rx nebulizer machine and supplies #1 ea 10/05/21 09/23/24 Unknown Rx [employer]E [employer]ACE #1 ea 01/09/22 09/23/24 Unknown Rx alprazolam 0.5 mg tablet 0.5 mg PO TID PRN Anxiety 03/15/22 09/29/24 Unknown History bupropion HCl 150 mg 24 hr tablet, 150 mg PO DAILY 03/15/22 09/29/24 09/25/24 History extended release pregabalin 150 mg capsule See Rx Instructions .Route .COMPLEX 03/15/22 09/29/24 09/29/24 History albuterol sulfate 90 mcg/actuation 2 puff inhalation QID PRN 05/25/22 09/29/24 Unknown Rx aerosol inhaler (ProAir HFA) shortness of breath or wheezing #8.5 grams fluticasone fur. 200 mcg-umeclid 1 inh inhalation Q24H #60 ea 05/25/22 09/29/24 09/29/24 Rx 62.5 mcg-vilant 25 mcg inhalat.powder (Trelegy Ellipta) ibuprofen 200 mg capsule 200 mg PO Q6H PRN Pain 06/19/23 09/29/24 Unknown History biotin 10,000 mcg chewable tablet 10,000 mcg PO DAILY 09/23/24 09/29/24 09/25/24 History (Hair, Skin and Nails (biotin)) calcium carbonate (Calcium 600) 600 mg PO DAILY 09/23/24 09/25/24 09/25/24 History omeprazole magnesium 20 mg 20 mg PO DAILY 09/23/24 09/29/24 09/28/24 History tablet,delayed release (Prilosec OTC) Allergies Allergy/AdvReac Type Severity Reaction Status Date / Time azithromycin Allergy Severe ADR-Vomitin Verified 09/29/24 07:26 g Current Medications Generic Name Dose Route Start Last Admin Trade Name Freq PRN Reason Stop Dose Admin Ketorolac Tromethamine 15 mg 09/29/24 12:58 09/29/24 13:43 Ketorolac 30 Mg/Ml Inj IVP 15 mg Q6H PRN Administration MODERATE TO SEVERE PAIN PFSH Acute PFSH: Medical History Right knee DJD COPD (chronic obstructive pulmonary disease) Surgical History History of lumpectomy of left breast History of nasal surgery History of right knee surgery Social History Smoking and tobacco/nicotine status: former use of tobacco/nicotine Vitals/I&O/Wt Last Vital Signs Temp 98.4 F 09/29/24 12:37 Pulse 67 09/29/24 12:37 Resp 17 09/29/24 12:37 BP 123/59 09/29/24 12:37 Pulse Ox 94 09/29/24 12:37 O2 Del Method Room Air 09/29/24 12:37 O2 Flow Rate 6 09/29/24 12:17 09/28/24 09/29/24 09/29/24 22:59 06:59 14:59 Intake Total 100 / 100 Output Total 125 / 125 Balance - Weight last 48 hrs Weight 86.183 kg Physical Exam Const: COMMON NORMALS: no acute distress and patient oriented x3 Neck/C-Spine: COMMON NORMALS: no JVD Resp: COMMON NORMALS: normal respiratory effort, No retractions, No use of accessory muscles and clear to auscultation bilaterally AUSCULTATION: clear to auscultation bilaterally Cardio: COMMON NORMALS: no JVD, regular rate, regular rhythm, S1 normal heart sound present and S2 normal heart sound present RATE: regular rate RHYTHM: regular rhythm HEART SOUNDS: S1 normal heart sound present and S2 normal heart sound present GI: COMMON NORMALS: Normal to inspection, nondistended, normoactive bowel sounds present and non-tender Extremity: COMMON NORMALS: no pedal edema Neuro: COMMON NORMALS: patient oriented x3 Psych: COMMON NORMALS: mental status grossly normal Urinary Catheter Management: Turner: Cath Placed During This Visit: yes Urinary Catheter Date of Insertion: 09/29/24 Urinary Catheter Time of Insertion: 10:16 Data 09/29/24 07:51 09/29/24 07:40 A&P Assessment and plan (1) Right knee DJD: Status post surgical invention by Dr. Rivera Plan - Pain control and anticoagulation as per orthopedic team -resume her home trazodone, Wellbutrin, Xanax, Lyrica, - Monitor respiratory status PDMP PDMP Reviewed: Not Reviewed Consult Attestations Medical Necessity Statement: Patient requires hospitalization for right knee surgery Diagnoses Right knee DJD M17.11
[2024-09-29] MEDS: oxyCODONE 5 mg IR Tab/Cap PO ×2 (15:33→20:20)
[2024-09-29] MEDS: chlorhexidine gluconate 0.12% Btl 473 mL 30 ML MUCOUS MEM ×3 (15:34→20:18)
[2024-09-29] MEDS: ceFAZolin 2,000 MG in sodium chloride 0.9% (plus) 50 ML 100 MG IV (16:22)
[2024-09-29] MEDS: mupirocin oint 22 gm 1 APPLIC NASAL (17:20)
[2024-09-29] MEDS: sennosides-docusate Tablet 2 TAB PO (17:21)
[2024-09-29] MEDS: calcium carb-vit d 600mg/400unit 1 Tablet 1 EACH PO (17:22)
[2024-09-29] MEDS: tranexamic acid 1,000 MG/100 ML PREMIX 600 MG IV (19:32)
[2024-09-30] MEDS: ceFAZolin 2,000 MG in sodium chloride 0.9% (plus) 50 ML 100 MG IV ×2 (00:37→08:46)
[2024-09-30] MEDS: HYDROmorphone 0.5 MG/0.5 ML INJ IVP (01:22)
[2024-09-30 04:17] VITALS: BP 135/78; PULSE 70; RESP 15; TEMP 36.9; O2SAT 97
[2024-09-30 04:28] LABS: Hematocrit 31.5 % (36-47); Hemoglobin 10.00 g/dL (11.27-16.99); Mean Corpuscular HGB Conc 31.7 g/dL (30-55); Mean Corpuscular Hemoglobin 25.7 pg (27-33); Mean Corpuscular Volume 81.0 fl (85-98); Nucleated Red Blood Cells % 0 %; Platelet Count 192 10^3/cmm (157-399); Red Blood Count 3.89 10^6/uL (3.85-5.65); White Blood Count 11.67 10^3/uL (3.29-11.43)
[2024-09-30 04:45] LABS: Anion Gap 15.6 (5-19); Blood Urea Nitrogen 16 mg/dL (8-23); Calcium 9.2 mg/dL (8.5-10.5); Carbon Dioxide 23 mmol/L (22-29); Chloride 103 mmol/L (98-107); Creatinine Clr Calc Pharmacy 63.5547; Glucose 102 mg/dL (65-115); Osmolality Calculated 285 mOsm/kg (285-295); Potassium 4.6 mmol/L (3.5-5.1); Sodium 137 mmol/L (136-145)
[2024-09-30 06:19] VITALS: RESP 16; O2SAT 94
[2024-09-30] MEDS: oxyCODONE 5 mg IR Tab/Cap PO ×2 (06:19→10:08)
[2024-09-30] MEDS: acetaminophen 1,000 MG/100 ML PIGGYBACK 400 MG IV (07:32)
[2024-09-30 08:00] VITALS: BP 123/89; PULSE 60; RESP 16; TEMP 36.7
[2024-09-30] MEDS: calcium carb-vit d 600mg/400unit 1 Tablet 1 EACH PO (08:39)
[2024-09-30] MEDS: multivitamin therapeutic Tablet 1 TAB PO (08:39)
[2024-09-30] MEDS: sennosides-docusate Tablet 2 TAB PO (08:39)
[2024-09-30] MEDS: ATORVASTATIN 10 MG TABLET 20 MG PO (08:39)
[2024-09-30] MEDS: mupirocin oint 22 gm 1 APPLIC NASAL (08:41)
[2024-09-30] MEDS: chlorhexidine gluconate 0.12% Btl 473 mL 30 ML MUCOUS MEM (08:41)
[2024-09-30 10:08] VITALS: RESP 17; O2SAT 96
[2024-09-30 10:11] VITALS: BP 155/86; PULSE 65; RESP 16; TEMP 36.8; O2SAT 97
--- NOTE | 2024-09-30 13:36 | P.DS_ITS ---
Discharge Providers Date of Admission: 09/29/24 12:23 Date of Discharge: September 30, 2024 Attending Provider at Admission: Javier Rivera DO Attending Provider at Discharge: Javier Rivera DO Consults: Hospitalist?Dr. Bah Primary Care Provider: Archie Mancera MD Diagnoses at Discharge Discharge Diagnosis (1) Right knee DJD: Status: Acute Reason for Visit Reason for Visit: M17.11 Brief History: Status post right total knee arthroplasty?[place] robotic assisted Hospital Course Hospital Course Patient presented to the preoperative holding area with plan for right total knee arthroplasty after patient has been worked up in the outpatient setting for failed conservative treatment of right knee degenerative joint disease. Once cleared by anesthesia for surgery patient subsequently was taken back to the operative suite underwent anesthesia per anesthesia department and then subsequently underwent a right total knee arthroplasty. Procedure was performed without any complications patient was taken to PACU in stable condition patient recovered well in PACU and then was admitted to the floor postoperatively internal medicine was consulted and on board for medical management and assistance with care. Patient received appropriate PT/OT, postoperative antibiotics, postoperative TXA, pain control, postoperative DVT prophylaxis. Elevation and ice. Patient encouraged for knee range of motion allowed weightbearing as tolerated to the operative lower extremity. Dressing was changed as needed, labs were monitored daily. Patient recovered well postoperatively and worked well and progressed well with therapy. It was determined on postoperative day 1 the patient was stable for discharge from an orthopedic standpoint and medicine. Patient was comfortable with discharge and plan was discharged home. Patient received appropriate discharge instructions as well as pain medication and DVT prophylaxis postoperatively. Given appropriate instructions for dressing management. Patient will follow-up with Dr. Rivera/orthopedics in the office in 2 weeks. All questions answered. Understand if there is any issues questions or concerns and contact the office. Physical Exam Narrative: Right knee examination: Dressing on in place, clean dry and intact. No evidence of saturation. Patient has normal postoperative swelling and tenderness to palpation to the knee. Compartments are soft compressible,'s calf soft and nontender. Sensations intact to light touch distally. Distal pulses are palpable. Patient is able to wiggle toes as well as plantarflex and dorsiflex ankle. Urinary Catheter Management: Turner: Cath Placed During This Visit: yes, but has since been removed by the nurse Reason for Continuing Indwelling Catheter: Decision to DC Catheter Urinary Catheter Date of Insertion: 09/29/24 Urinary Catheter Time of Insertion: 10:16 Date Urinary Catheter Removed: 09/29/24 Time Urinary Catheter Discontinued: 22:53 Discharge Data Studies Completed and Pending Completed Studies During Hospitalization Category Date Time Status XR knee RT 1-2V 60501 Stat Exams 09/29/24 12:22 Completed Pending at discharge Category Date Time Status Basic Metabolic Panel AM LABS Lab 10/01/24 04:00 Ordered Basic Metabolic Panel AM LABS Lab 10/02/24 04:00 Ordered Complete Blood Count w/Auto AM LABS Lab 10/01/24 04:00 Ordered Complete Blood Count w/Auto AM LABS Lab 10/02/24 04:00 Ordered Radiology Impressions Knee X-Ray 09/29/24 12:22 IMPRESSION: Total right knee arthroplasty without abnormality. Laboratory Results WBC 11.67 10^3/uL (3.29-11.43) H 09/30/24 04:15 RBC 3.89 10^6/uL (3.85-5.65) 09/30/24 04:15 Hgb 10.00 g/dL (11.27-16.99) L 09/30/24 04:15 Hct 31.5 % (36-47) L 09/30/24 04:15 MCV 81.0 fl (85-98) L 09/30/24 04:15 MCH 25.7 pg (27-33) L 09/30/24 04:15 MCHC 31.7 g/dL (30-55) 09/30/24 04:15 RDW 14.5 % (12.1-15.1) 09/30/24 04:15 Plt Count 192 10^3/cmm (157-399) 09/30/24 04:15 MPV 9.9 fL (7.4-10.4) 09/30/24 04:15 Neut % (Auto) 76.8 % 09/30/24 04:15 Lymph % (Auto) 12.0 % 09/30/24 04:15 [place] % (Auto) 10.5 % 09/30/24 04:15 Eos % (Auto) 0.0 % 09/30/24 04:15 Baso % (Auto) 0.2 % 09/30/24 04:15 Neut # (Auto) 8.97 10^3/uL (1.8-7.7) H 09/30/24 04:15 Lymph # (Auto) 1.4 10^3/uL (0.8-4.8) 09/30/24 04:15 [place] # (Auto) 1.2 10^3/uL (0.2-0.9) H 09/30/24 04:15 Eos # (Auto) 0.0 10^3/uL (0.0-0.8) 09/30/24 04:15 Baso # (Auto) 0.0 10^3/uL (0.0-0.1) 09/30/24 04:15 Nucleated RBC % (auto) 0 % 09/30/24 04:15 Nucleated RBCs # 0.0 /100WBC 09/30/24 04:15 Sodium 137 mmol/L (136-145) 09/30/24 04:15 Potassium 4.6 mmol/L (3.5-5.1) 09/30/24 04:15 Chloride 103 mmol/L (98-107) 09/30/24 04:15 Carbon Dioxide 23 mmol/L (22-29) 09/30/24 04:15 Anion Gap 15.6 (5-19) 09/30/24 04:15 BUN 16 mg/dL (8-23) 09/30/24 04:15 Creatinine 1.0 mg/dL (0.5-0.9) H 09/30/24 04:15 GFR Calculation 56.6 mL/min (90-130) L 09/30/24 04:15 Glucose 102 mg/dL (65-115) 09/30/24 04:15 Calculated Osmolality 285 mOsm/kg (285-295) 09/30/24 04:15 Calcium 9.2 mg/dL (8.5-10.5) 09/30/24 04:15 Blood Type A Positive 09/29/24 07:40 Rho(D) Type Rh positive 09/29/24 07:40 Antibody Screen Negative 09/29/24 07:40 Vitals Last Vital Signs Temp 98.3 F 09/30/24 10:11 Pulse 65 09/30/24 10:11 Resp 16 09/30/24 10:11 BP 155/86 09/30/24 10:11 Pulse Ox 97 09/30/24 10:11 O2 Del Method Room Air 09/30/24 10:11 O2 Flow Rate 6 09/29/24 12:17 Discharge Plan Discharge Patient Disposition: Home Health Service Condition: Stable Prescriptions: New oxycodone 5 mg tablet 10 mg PO Q6H PRN (Reason: pain) 7 Days Qty: 56 0RF Rx Instructions: 1 tab moderate pain 2 tabs severe pain ondansetron 4 mg tablet,disintegrating 4 mg PO Q8H PRN (Reason: nausea and vomiting) 3 Days Qty: 9 0RF cefadroxil 500 mg capsule 500 mg PO BID 7 Days Qty: 14 0RF Eliquis 2.5 mg tablet 2.5 mg PO BID 14 Days Qty: 28 0RF Continued cyclobenzaprine 10 mg tablet 10 mg PO TID PRN (Reason: Muscle Pain) trazodone 100 mg tablet 100 mg PO BEDTIME montelukast 10 mg tablet 10 mg PO DAILY loratadine [Claritin] 10 mg tablet 10 mg PO DAILY atorvastatin [Lipitor] 20 mg tablet 20 mg PO DAILY magnesium 200 mg tablet 400 mg PO DAILY (DME) compressor, for nebulizer Device See Rx Instructions .Route Qty: 1 0RF Rx Instructions: 1 NEBULIZER AND ALL REQUIRED EGUIPMENT As directed albuterol sulfate 2.5 mg /3 mL (0.083 %) solution for nebulization 2.5 mg inhalation Q4H PRN (Reason: shortness of breath or wheezing) Qty: 180 6RF (DME) nebulizer machine and supplies See Rx Instructions .Route .MEDSUPPLY Qty: 1 0RF Rx Instructions: with albuterol every 4 hours prn dyspnea and wheezing (DME) [employer] See Rx Instructions .Route .MEDSUPPLY Qty: 1 0RF Rx Instructions: As directed calcium carbonate [Calcium 600] 600 mg calcium (1,500 mg) tablet 600 mg PO DAILY omeprazole magnesium [Prilosec OTC] 20 mg tablet,delayed release (DR/EC) 20 mg PO DAILY Hair, Skin and Nails (biotin) 10,000 mcg tablet,chewable 10,000 mcg PO DAILY albuterol sulfate [ProAir HFA] 90 mcg/actuation HFA aerosol inhaler 2 puff inhalation QID PRN (Reason: shortness of breath or wheezing) Qty: 8.5 0RF Rx Instructions: needs appointment Trelegy Ellipta 200-62.5-25 mcg blister with device 1 inh inhalation Q24H Qty: 60 0RF Rx Instructions: needs appointment alprazolam 0.5 mg tablet 0.5 mg PO TID PRN (Reason: Anxiety) bupropion HCl 150 mg tablet extended release 24 hr 150 mg PO DAILY pregabalin 150 mg capsule See Rx Instructions .ROUTE .COMPLEX Rx Instructions: 150 mg in am and 300 mg in pm Held naproxen 375 mg tablet 375 mg PO BID PRN (Reason: Pain) Hold Instructions: Resume on 10/14/24. hydrocodone-acetaminophen 10-325 mg tablet 1 tab PO Q8H PRN (Reason: Pain) Hold Instructions: Resume on 10/14/24. ibuprofen 200 mg capsule 200 mg PO Q6H PRN (Reason: Pain) Hold Instructions: Resume on 10/14/24. Discharge Orders: Discharge Order (Routine); Ordered 09/30/24 Ordered By: Javier Rivera Other Ambulatory Orders: DME: Walker (Order) Location: None Selected Ordered By: Javier Rivera Referrals: [facility] Spare Change Payments [Other] Referral Note: Please stop by this address and pick up driver your walker. [facility] [Outside] Endy Rivera PA [Physician Assistant Manager/[place], Orthopedics] - 10/14/24 9:15 am Discharge Diet: Regular Discharge Activity: Limit activity as instructed Patient Instructions: Acute Wound Care (DC), Precautions after Total Joint Replacement Surgery (DC), Total Knee Replacement (DC), OB Discharge Report, OB Food/Drug Interaction Guide, Opioid Safety, Post Anesthesia Care, Patient Portal & Samira Instructions Activity Restrictions/Additional Instructions: Orthopedic discharge instructions: May remove Gaurav bandage after 72 hours keep incisions clean dry and intact, leave Silverlon bandage dressings on in place for 7 days after that may rinse incisions with warm soapy water pat dry and redress with a dry dressing. Patient may weight-bear as tolerate to the operative extremity Utilize walker as needed Encourage knee range of motion Ice and elevate as needed for pain and swelling Take pain medication as prescribed Take antinausea medication as needed Take antibiotic as prescribed Pain medication can cause constipation. take [id number] stool softeners and or MiraLAX. Take prescribed Eliquis twice daily for the next 14 days for blood clot prevention May supplement for pain with Tylenol [id number] as needed(1000 mg every 8 hours-do not exceed more than 3000mg in 24-hour period) No baths or soaks Follow-up in the orthopedic office in 2 weeks Contact the office for any questions or concerns [address] [place] [address] [phone] [place], [place] is where you can pick up driver your Walker Discharge Attestations Time Spent in Discharge Care*: less than 30 min Quality Metrics Clinical Quality Measures [ No reported AMI, CVA or VTE this stay] Coding Level of Care Code Acute Code for Chg Fwd Diagnoses Right knee DJD M17.11 Time Spent (min) 25
--- NOTE | 2024-09-30 14:24 | P.PN_ITS ---
Subjective 2 Subjective: Patient was seen this morning, has no complaints, no chest pain, potation's, no shortness of breath, abdominal pain, no calf pain, no calf swelling, denies any dysuria, hematuria, she is ambulatory without any significant symptomatology, will be discharged on Eliquis for DVT prophylaxis, discussed risk of bleeding, she voiced understanding, all questions answered Vitals/I&O/Wt Last Vital Signs Temp 98.3 F 09/30/24 10:11 Pulse 65 09/30/24 10:11 Resp 16 09/30/24 10:11 BP 155/86 09/30/24 10:11 Pulse Ox 97 09/30/24 10:11 O2 Del Method Room Air 09/30/24 10:11 O2 Flow Rate 6 09/29/24 12:17 09/29/24 09/30/24 09/30/24 22:59 06:59 14:59 Intake Total 1250 / 1350 1150 / 2500 890 / 890 Output Total 1999 / 2125 550 / 2675 250 / 250 Balance -750 / -775 600 / -175 640 / 640 Weight last 48 hrs Weight 86.183 kg Physical Exam 2 Const: COMMON NORMALS: no acute distress and patient oriented x3 Resp: COMMON NORMALS: normal respiratory effort, No retractions, No use of accessory muscles and clear to auscultation bilaterally AUSCULTATION: clear to auscultation bilaterally Cardio: COMMON NORMALS: regular rate, regular rhythm, S1 normal heart sound present and S2 normal heart sound present RATE: regular rate RHYTHM: r egular rhythm HEART SOUNDS: S1 normal heart sound present and S2 normal heart sound present GI: COMMON NORMALS: Normal to inspection, nondistended, normoactive bowel sounds present and non-tender Extremity: COMMON NORMALS: no pedal edema Neuro: COMMON NORMALS: patient oriented x3 Psych: COMMON NORMALS: mental status grossly normal Urinary Catheter Management: Turner: Cath Placed During This Visit: yes, but has since been removed by the nurse Reason for Continuing Indwelling Catheter: Decision to DC Catheter Urinary Catheter Date of Insertion: 09/29/24 Urinary Catheter Time of Insertion: 10:16 Date Urinary Catheter Removed: 09/29/24 Time Urinary Catheter Discontinued: 22:53 Data 09/30/24 04:15 09/30/24 04:15 A&P Assessment and plan (1) Right knee DJD: Status post surgical invention by Dr. Rivera Plan - Pain control and anticoagulation as per orthopedic team -resume her home trazodone, Wellbutrin, Xanax, Lyrica, - Monitor respiratory status PDMP PDMP Reviewed: Not Reviewed Attestations 2 Medical Necessity Statement*: Patient will be discharged today Diagnoses Right knee DJD M17.11
[2024-09-30 14:27] VITALS: BP 149/78; PULSE 64; RESP 17; TEMP 36.9; O2SAT 98
== END 2024-09-30 14:31 | disposition home health service (06) ==
LOC: OBGYN 12:23
PROVIDERS: Physician Assistant; Admitting Provider Student in an Organized Health Care Education/Training Program; PCP Family Medicine; Visit Provider Student in an Organized Health Care Education/Training Program
PROC: 8E0Y0CZ Robotic Assisted Procedure of Lower Extremity, Open Approach (ICD-10-PCS; CPT 27447; principal; 2024-09-29 09:35)
DX: M17.11 Unilateral primary osteoarthritis, right knee (principal); J44.9 Chronic obstructive pulmonary disease, unspecified; Z87.891 Personal history of nicotine dependence; E78.5 Hyperlipidemia, unspecified
CPT/HCPCS: 27447; 20985; 36415; 51702; 73560; 80048; 85025; 86850; 86900; 97110; 97116; 97161; 97166; A4216; C1713; C1776; G0378; J0131; J0171; J0690; J1100; J1171; J1885; J2250; J2405; J2704; J2795; J3010; J3370; J7120; J9999; L8699

== ENCOUNTER → 2024-10-14 09:18 | Outpatient (BNVA) | payer MEDICARE, SELFPAY | PROVIDERS: PCP Family Medicine; Visit Provider Physician Assistant | DX: Z98.890 Other specified postprocedural states (principal); Z96.651 Presence of right artificial knee joint | CPT/HCPCS: 73560; 73565; 99024 ==

== ENCOUNTER → 2024-11-25 08:58 | Outpatient (BNVA) | payer OTHER, SELFPAY | PROVIDERS: PCP Family Medicine; Visit Provider Physician Assistant | DX: Z96.651 Presence of right artificial knee joint (principal); Z01.89 Encounter for other specified special examinations | CPT/HCPCS: 73560; 73565; 99024 ==

== ENCOUNTER 2024-12-17 08:46 | Outpatient (CLI) | payer OTHER, SELFPAY ==
--- NOTE | 2024-12-17 09:00 | MM_ITS ---
WS: [id number] BILATERAL SCREENING DIGITAL TOMOSYNTHESIS MAMMOGRAM WITH CAD HISTORY: SCREENING COMPARISON: 11/06/2023, 08/30/2022 Bilateral CC and MLO views with tomosynthesis and synthetic mammography submitted. Computer aided detection analyzed. Breast composition: There are scattered areas of fibroglandular density. No suspicious masses, microcalcifications or architectural distortion. Benign calcifications. MM/MM scr BI tomosynthesis 36050 IMPRESSION: BI-RADS: 2 - Benign. FOLLOW UP: 1 Year Follow-up
== END 2024-12-17 08:47 | disposition home or self-care (01) ==
LOC: MOBLMAM 09:00
PROVIDERS: PCP Family Medicine; Visit Provider Family Medicine
DX: Z12.31 Encounter for screening mammogram for malignant neoplasm of breast (principal)
CPT/HCPCS: 77063; 77067

== ENCOUNTER → 2025-01-20 09:24 | Outpatient (BNVA) | payer OTHER, SELFPAY | PROVIDERS: PCP Family Medicine; Visit Provider Student in an Organized Health Care Education/Training Program | DX: Z96.651 Presence of right artificial knee joint (principal) | CPT/HCPCS: 73560; 73565; 99213 ==